=== PATIENT | male | born 1955 | race Caucasian/White ===

== ENCOUNTER 2016-09-19 16:59 | Emergency (ER) | payer OTHER ==
[2016-09-19 17:17] LABS: BASOPHIL# 0.2 X 10^3uL (0.0-0.1); BASOPHILS 1.5 % (0.0-2.0); EOSINOPHILS 1.7 % (0.0-6.0); EOSINOPHILS# 0.2 X 10^3uL (0.0-0.4); HEMATOCRIT 49.9 % (42.0-54.0); HEMOGLOBIN 17.2 g/dL (14.0-18.0); LYMPHOCYTES 14.9 % (20.0-40.0); LYMPHOCYTES# 2.1 X 10^3uL (0.8-3.8); MEAN CELL VOLUME 95.8 fL (80.0-100.0); MEAN CORPUS. HGB CONCENTRATION 34.6 g/dL (32.0-36.0); MEAN CORPUSCULAR HEMOGLOBIN 33.1 pg (29.0-35.0); MEAN PLATELET VOLUME 8.8 fL (7.4-10.4); MONOCYTES 5.3 % (2.0-10.0); MONOCYTES# 0.7 X 10^3uL (0.2-1.0); NEUTROPHILS 76.6 % (54.0-75.0); NEUTROPHILS# 10.8 X 10^3uL (2.6-6.7); PLATELET COUNT 216 X 10^3uL (130-440); RED BLOOD COUNT 5.21 X 10^6uL (4.20-6.10); RED CELL DISTRIBUTION WIDTH 14.7 % (11.5-14.5)
[2016-09-19 17:29] LABS: BLOOD UREA NITROGEN 8 mg/dL (9-20); CALCIUM 9.5 mg/dL (8.4-10.2); CHLORIDE 105 mmol/L (98-107); CREATININE 0.8 mg/dL (0.7-1.3); EST GLOMERULAR FILTRATION RATE > 60 mL/min; GLUCOSE 104 mg/dL (70-100); MAGNESIUM 1.8 mg/dL (1.6-2.3); POTASSIUM 3.9 mmol/L (3.5-5.1); SODIUM 140 mmol/L (137-145)
[2016-09-19 17:40] LABS: TROPONIN I < 0.012 ng/mL (0.00-0.034)
--- NOTE | 2016-09-19 17:48 | RADIOLOGY REPORT ---
HISTORY: Shortness of breath and vomiting. COMPARISON: None. FINDINGS: 1 view of the chest obtained. Hyperinflated lungs are noted, consistent with COPD, there is no focal consolidation. There is no pleural effusion. There is no pneumothorax. The cardiomediastinal silh ouette is normal. There is no abnormality of the pulmonary vessels. There is no focal lung parenchy mal nodule. There is no bone lesion. IMPRESSION: COPD, no acute abnormality. Final Electronic Signature: This report was electronically signed by Nikolas Tim MD, FACR on 2016 5:46 PM. sarah /
--- NOTE | 2016-09-19 18:30 | ER NURSING DOCUMENTATION ---
Nurse's Notes [facility] Name:Arnaldo Vaughan Age:61 yrs Sex:Male :1955 Arrival Date:09/19/2016 Time:16:59 BedTrauma-A Private MD:Physician, No Diagnosis:Vomiting;Bronchitis Acute;Bronchitis Asthmatic Presentation: 09/19 17:03 Acuity: ANGELICA 2 tg 17:07 Presenting complaint: Patient states: emesis x3 prior to arrival; patient has had 5 MIs nf and each has started with vomiting, denies chest pain or other symptoms. Transition of care: patient was not received from another setting of care. Notified ED Physician of patient's arrival and CC Dr. Hallman notified. 17:07 Method Of Arrival: Walk In nf 17:07 Care prior to arrival: None. nf Triage Assessment: 17:07 General: Appears in no apparent distress, well nourished, well groomed, Behavior is nf anxious, pleasant. Pain: Denies pain. Neuro: No deficits noted. Cardiovascular: Capillary refill < 3 seconds Heart tones present Denies fatigue, lightheadedness, palpitations, Rhythm is sinus rhythm. Respiratory: No deficits noted. Respiratory effort is even, unlabored, Respiratory pattern is regular, Breath sounds are clear bilaterally. GI: Reports vomiting, Denies diarrhea, nausea, tolerance of food, tolerance of fluids. : Denies urinary frequency, urgency. Musculoskeletal: No deficits noted. Historical: - Allergies: No known drug Allergies; - Home Meds: 1. Omeprazole Oral 2. aspirin 81 mg oral tab once daily 3. bisoprolol fumarate oral 4. Isosorbide Mononitrate Oral 5. Synthroid Oral 6. sertraline oral 7. Nitrostat SL - PMHx: AAA; GERD; THYROID PROBLEM; Kidney Stone w/ Colic (April 12, 2016); [place]; cardiac stent; - PSHx: CHOLECYSECTOMY; CABG; - Tetanus: Other NA today. - Ebola Screening: : No symptoms or risks identified at this time. . - Immunization history: Pneumococcal vaccine is not up to date, Flu Vaccine None. - Social history: Smoking status: Patient uses tobacco products, current every day smoker. Patient/guardian denies using alcohol, street drugs. Screenin:07 Infectious Disease Risk None. Abuse screen: Denies threats or abuse. Nutritional nf screening: No deficits noted. Assessment: 17:32 See Triage Assessment done by same RN. Pain: Denies pain. GI: Abdomen is flat, non- nf distended. Vital Signs: 17:07 BP 127 / 91; Pulse 94; Resp 20; Temp 98.3(O); Pulse Ox 94% on R/A; Weight 61.23 kg; nf Height 5 ft. 11 in. (180.34 cm); Pain 0/10; 18:15 BP 110 / 70; Pulse 81; Resp 16; Pulse Ox 91% on R/A; Pain 0/10; nf 17:07 Body Mass Index 18.83 (61.23 kg, 180.34 cm) nf ED Course: 17:00 Patient arrived in ED. arc 17:00 Taras Hallman MD is Attending Physician. tl1 17:00 Physician, No is Private Physician. arc 17:00 EKG done. (by ED staff). Reviewed by Taras Hallman MD. nf 17:03 Keegan Victor, RN is Primary Nurse. tg 17:03 Triage completed. tg 17:07 Arm band placed on Bed in low position Gowned HOB Elevated Side rails up x1. Family nf accompanied patient. 17:07 Valuables Remains with patient Adult w/ patient. monitoring specialist on. Pulse ox on. NIBP nf On - RN Monitoring Only. Door closed. Noise minimized. Lights dimmed. Moved to private room. Verbal reassurance given. Warm blanket given. Pillow given. 17:15 Labs drawn. By patient care secretary Sent per order to lab. Inserted saline lock: 18 gauge in right em3 antecubital area and blood collected. 17:15 EKG attached nf 17:20 Port Xray Completed. hz 17:23 CHEST; SINGLE VIEW [id number] In Process Unspecified. EDMS Administered Medications: 18:18 Drug: Albuterol HFA Inhaler 2 puffs; {Note: administered now and remainder of inhaler nf dispensed to patient.} Route: Inhalation; 18:19 Follow up: Response: No adverse reaction nf 18:23 Follow up: Response: Medication administered at discharge. nf Outcome: 18:06 Discharge ordered by . tl1 18:23 Discharged to home ambulatory, with significant other. nf 18:23 Condition: stable 18:23 Discharge Assessment: Patient awake, alert and oriented x 3. No cognitive and/or functional deficits noted. Patient verbalized understanding of disposition instructions. 18:23 Discharge instructions given to patient, family, Instructed on discharge instructions, follow up and referral plans. medication usage, benefits of quitting smoking, Demonstrated understanding of instructions, medications, Prescriptions given X 3, zofran and prednisone and combivent inhaler 18:23 IV D/Ranjit nf 18:30 Patient left the ED. nf 09/20 13:31 Discharge F/U Call: Unable to reach: non-working number Signatures: Dispatcher [employer] EDKeegan Dillard RN RN Donya Anand RN RN Oneyda Zimmerman RN RN nf Rhett Romero em3 Taras Hallman MD MD tl1 Verena Pabon, [facility] Kim Arteaga
--- NOTE | 2016-09-19 18:30 | ER PHYSICIAN DOCUMENTATION ---
Physician Documentation [facility] Name:Arnaldo Vaughan Age:61 yrs Sex:Male :1955 Arrival Date:09/19/2016 Time:16:59 BedTrauma-A Private MD:Physician, No ED Taras Jones Disposition: 09/21 15:31 Chart complete. tl1 Disposition: 09/19/16 18:06 Discharged to Home/Self Care. Impression: Vomiting, Bronchitis Acute, Bronchitis Asthmatic. - Condition is Good. - Discharge Instructions: VOMITING (6y-Adult), ASTHMATIC BRONCHITIS Adult - BRONCHITIS w/ Wheezing (Adult). - Prescriptions for Zofran 4 mg Oral Tablet - take 1-2 tablet by ORAL route every 4-6 hours As needed; 10 tablet. Combivent Respimat 20- 100 mcg/actuation Inhalation aerosol - inhale 1 puff by INHALATION route 4 times per day not to exceed 6 puffs in 24hrs; 1 Inhaler. Prednisone 20 mg Oral - take 2 tablet by ORAL route once daily for 5 days; 10 tablet. - Medical Reconciliation form form. - Follow up: Private Physician; When: 4- 6 days; Reason: Recheck today's complaints, Continuance of care. - Problem is an ongoing problem. - Symptoms have improved. HPI: 09/19 17:01 This 61 yrs old Male presents to ER via Walk In with complaints of Vomiting. tl1 17:01 The patient presents to the emergency department with vomiting, without any complaints tl1 of abdominal pain. Onset: The symptom(s)/episode began/occurred suddenly, this morning. 17:10 He has MMP. He vomited frequently prior to getting his gallbladder out about a year tl1 ago. He still vomits suddenly, without warning,, several times a week for no apparent reason. He has no other GI symptom and otherwise feels well right now, after vomiting 3 times earlier today; twice this AM within a short period of time., and then once just prior to arrival.. Only other symptoms have been, for the last 2 days, have been a little bit of a [employer] cough and a minor degree off sinus congestion.. Historical: - Allergies: No known drug Allergies; - Home Meds: 1. Omeprazole Oral 2. aspirin 81 mg oral tab once daily 3. bisoprolol fumarate oral 4. Isosorbide Mononitrate Oral 5. Synthroid Oral 6. sertraline oral 7. Nitrostat SL - PMHx: AAA; GERD; THYROID PROBLEM; Kidney Stone w/ Colic (April 12, 2016); [place]; cardiac stent; - PSHx: CHOLECYSECTOMY; CABG; - Tetanus: Other NA today. - Ebola Screening: : No symptoms or risks identified at this time. . - Immunization history: Pneumococcal vaccine is not up to date, Flu Vaccine None. - Social history: Smoking status: Patient uses tobacco products, current every day smoker. Patient/guardian denies using alcohol, street drugs. ROS: 17:10 Cardiovascular: Negative for chest pain, edema, orthopnea, paroxysmal nocturnal tl1 dyspnea, acute changes. 17:10 Respiratory: Negative for dyspnea on exertion, hemoptysis, shortness of breath, sputum production, wheezing. 17:10 Abdomen/GI: Positive for vomiting, Negative for abdominal pain, nausea, diarrhea, constipation, abdominal cramps, anorexia, hematemesis, black/tarry stool. 17:10 All other systems are negative. Vital Signs: 17:07 BP 127 / 91; Pulse 94; Resp 20; Temp 98.3(O); Pulse Ox 94% on R/A; Weight 61.23 kg; nf Height 5 ft. 11 in. (180.34 cm); Pain 0/10; 18:15 BP 110 / 70; Pulse 81; Resp 16; Pulse Ox 91% on R/A; Pain 0/10; nf 17:07 Body Mass Index 18.83 (61.23 kg, 180.34 cm) nf MDM: 17:00 Patient medically screened. tl1 17:15 EKG attached nf 18:00 Differential diagnosis: gastritis, cholecystitis, pancreatitis, appendicitis, tl1 gastroenteritis, Acute coronary syndrome. Data reviewed: vital signs, nurses notes, old medical records, lab test result(s), EKG, radiologic studies, plain films, and as a result, I will discharge patient. ECG:. Medication response: The patient's symptoms have improved, albuterol nebulizer treatment(s) relieved the patient's symptoms. The patient is no longer wheezing. 09/19 17:20 Order name: CBC AUTO DIF, MDIF/RMOR IF IND; Complete Time: 18:05 EDMS 09/19 18:00 Interpretation: WHITE BLOOD COUNT 14.0; HEMOGLOBIN 17.2; HEMATOCRIT 49.9; PLATELET tl1 COUNT 216. 09/19 17:30 Order name: BASIC METABOLIC PANEL; Complete Time: 18:05 [facility] 09/19 18:03 Interpretation: SODIUM 140; POTASSIUM 3.9; CHLORIDE 105; CARBON DIOXIDE 22; GLUCOSE tl1 104; BLOOD UREA NITROGEN 8; CREATININE 0.8; CALCIUM 9.5. 09/19 17:30 Order name: MAGNESIUM; Complete Time: 18:05 [facility] 09/19 18:03 Interpretation: Normal: MAGNESIUM 1.8. tl1 09/19 17:41 Order name: TROPONIN I; Complete Time: 18:05 EDKS 09/19 17:23 Order name: CHEST; SINGLE VIEW [id number] EDKS 09/19 17:48 Order name: CHEST; SINGLE VIEW [id number]; Complete Time: 18:05 [facility] 09/19 17:10 Order name: 12-lead EKG; Complete Time: 17:11 09/19 17:10 Order name: Iv Saline Lock; Complete Time: 17:11 09/19 17:10 Order name: Place Patient On Monitor; Complete Time: 17:11 09/19 17:10 Order name: Pulse Ox Continuous; Complete Time: 17:11 nf EC:00 Rate is 8 beats/min. Rhythm is regular. QRS Steinauer is Normal. SC interval is normal. QRS tl1 interval is normal. QT interval is normal. No Q waves. T waves are Normal. No ST changes noted. Clinical impression: Normal ECG. Interpreted by me. Reviewed by me. Dispensed Medications: 18:18 Drug: Albuterol HFA Inhaler 2 puffs; {Note: administered now and remainder of inhaler nf dispensed to patient.} Route: Inhalation; 18:19 Follow up: Response: No adverse reaction nf 18:23 Follow up: Response: Medication administered at discharge. nf Signatures: Oneyda Wilks, Taras Conteh RN, MD MD tl1
[2016-09-19] MEDS ORDERED: ALBUTEROL HFA 1 INH INHALER INHALATION ONE (18:31)
== END 2016-09-19 18:30 | disposition home or self-care (01) ==
LOC: ER 16:59
DX: J45.998 Other asthma (principal); R11.10 Vomiting, unspecified; I25.2 Old myocardial infarction; Z95.5 Presence of coronary angioplasty implant and graft; Z79.82 Long term (current) use of aspirin; Z79.899 Other long term (current) drug therapy
CPT/HCPCS: 71010; 80048; 83735; 84484; 85025; 93005; 94640; 99285; J7611

== ENCOUNTER 2016-10-05 14:45 | Emergency (ER) | payer OTHER ==
--- NOTE | 2016-10-05 16:25 | ER NURSING DOCUMENTATION ---
Nurse's Notes [facility] Name:Arnaldo Vaughan Age:61 yrs Sex:Male :1955 Arrival Date:10/05/2016 Time:14:45 Bed1 Private MD:Physician, No Diagnosis:Sacroiliac Sprain;Sacroiliitis Presentation: 10/05 14:55 Presenting complaint: Patient states: L hip pain after standing wrong. Transition of lp care: Home. 14:55 Acuity: ANGELICA 3 lp 14:55 Method Of Arrival: Private Vehicle lp Triage Assessment: 14:58 General: Appears in no apparent distress, Behavior is appropriate for age. Pain: lp Complains of pain in left iliac crest Pain does not radiate. Pain currently is 1 out of 10 on a pain scale. At worst was 7 out of 10 on a pain scale. Musculoskeletal: Circulation, motion, and sensation intact Capillary refill < 3 seconds Range of motion limited in left hip. Historical: - Allergies: No known drug Allergies; - Home Meds: 1. Combivent Inhl Unknown every 6 hours 2. aspirin 81 mg oral tab 1 tab once daily 3. bisoprolol fumarate 5 mg oral tab 1 tab once daily 4. isosorbide mononitrate 30 mg oral Tb24 1 tab once daily in the morning 5. levothyroxine 50 mcg oral tab 1 tab once daily 6. sertraline 100 mg oral tab 1 tab once daily 7. Nitrostat 0.4 mg sublingual subl 1 tab at the first sign of an attack; no more than 3 tabs are recommended within a 15 minute period. - PMHx: ANGINA; heart disease; Hypertension; HYPOTHYROIDISM; DEPRESSION; AAA; Kidney Stone w/ Colic (April 12, 2016); cardiac stent; - PSHx: CHOLECYSECTOMY; CABG; - Tetanus: < 10 years. - Ebola Screening: : Patient negative for fever greater than or equal to 101.5 degrees Fahrenheit, and additional compatible Ebola Virus Disease symptoms. Patient denies exposure to infectious person. Patient denies travel to an Ebola-affected area in the 21 days before illness onset. . - Immunization history: Pneumococcal vaccine is up to date, Flu Vaccine < 1 year. - Social history: Smoking status: Patient uses tobacco products, current every day smoker. Screenin:01 Infectious Disease Risk None. Abuse screen: Denies threats or abuse. Denies injuries lp from another. Nutritional screening: No deficits noted. Vital Signs: 14:59 BP 139 / 92; Pulse 62; Resp 14; Temp 98.0(O); Pulse Ox 97% on R/A; Weight 63.5 kg; lp Height 5 ft. 8 in. (172.72 cm); Pain 1/10; 16:24 BP 120 / 83; Pulse 62; Resp 14; Pulse Ox 94% on R/A; lp 14:59 Body Mass Index 21.29 (63.50 kg, 172.72 cm) lp ED Course: 14:46 Patient arrived in ED. ds 14:46 Physician, No is Private Physician. ds 14:55 Margi Wright RN is Primary Nurse. lp 14:55 Triage completed. lp 15:[address] Hallman notified. lp 15:01 Taras Hallman MD is Attending Physician. tl1 15:01 Valuables Remains with patient Patient has correct armband on for positive lp identification. Placed in gown. Bed in low position. Call light in reach. 15:37 Patient moved to radiology. alka 15:42 Patient moved back from radiology. alka Administered Medications: No medications were administered Outcome: 16:05 Discharge ordered by . tl1 16:23 Discharged to home ambulatory. lp 16:23 Condition: good 16:23 Instructed on discharge instructions, follow up and referral plans. medication usage. 16:24 Patient left the ED. lp Signatures: Margi Wright RN RN lp Srot, Angeli, Reg Reg Dee Dee Levy Tom, MD MD tl1
--- NOTE | 2016-10-06 05:42 | RADIOLOGY REPORT ---
Two views of the left hip demonstrate no displaced fracture, dislocation or bony destructive change. The hip joint appears unremarkable. Incidentally noted are postoperative changes involving the lower lumbar spine. IMPRESSION: No displaced injury is identified. Occult pelvic fractures are common and may require further evaluation and/or followup for detection. MTDD
--- NOTE | 2016-10-07 16:24 | ER PHYSICIAN DOCUMENTATION ---
Physician Documentation [facility] Name:Arnaldo Vaughan Age:61 yrs Sex:Male :1955 Arrival Date:10/05/2016 Time:14:45 Bed1 Private MD:Physician, No ED Taras Jones Disposition: 10/06 03:06 Chart complete. tl1 Disposition: 10/05/16 16:05 Discharged to Home/Self Care. Impression: Sacroiliac Sprain, Sacroiliitis. - Condition is Good. - Prescriptions for Declo 7.5- 325 mg Oral - take 1 tablet by ORAL route every 6 hours As needed; 12 tablet. - Medical Reconciliation form form. - Follow up: Private Physician; When: 4- 6 days; Reason: Recheck today's complaints, Continuance of care. - Problem is new. - Symptoms have improved. HPI: 10/05 15:00 This 61 yrs old Male presents to ER via Private Vehicle with complaints of tl1 Hip Pain - left. 15:00 The patient or guardian reports pain, Pain in the area of his left SI joint.. that tl1 occurred at home, sustained from twisting on his bad left knee while he was standing up. The patient is able to ambulate with assistance. The patient is able to bear partial body weight. There is no radiation of the patient's discomfort. Onset: The symptom(s)/episode began/occurred suddenly, just prior to arrival. Historical: - Allergies: No known drug Allergies; - Home Meds: 1. Combivent Inhl Unknown every 6 hours 2. aspirin 81 mg oral tab 1 tab once daily 3. bisoprolol fumarate 5 mg oral tab 1 tab once daily 4. isosorbide mononitrate 30 mg oral Tb24 1 tab once daily in the morning 5. levothyroxine 50 mcg oral tab 1 tab once daily 6. sertraline 100 mg oral tab 1 tab once daily 7. Nitrostat 0.4 mg sublingual subl 1 tab at the first sign of an attack; no more than 3 tabs are recommended within a 15 minute period. - PMHx: ANGINA; heart disease; Hypertension; HYPOTHYROIDISM; DEPRESSION; AAA; Kidney Stone w/ Colic (April 12, 2016); cardiac stent; - PSHx: CHOLECYSECTOMY; CABG; - Tetanus: < 10 years. - Ebola Screening: : Patient negative for fever greater than or equal to 101.5 degrees Fahrenheit, and additional compatible Ebola Virus Disease symptoms. Patient denies exposure to infectious person. Patient denies travel to an Ebola-affected area in the 21 days before illness onset. . - Immunization history: Pneumococcal vaccine is up to date, Flu Vaccine < 1 year. - Social history: Smoking status: Patient uses tobacco products, current every day smoker. ROS: 15:00 MS/extremity: Positive for pain, of the left SI joint.. tl1 Exam: 15:00 Constitutional: This is a well developed, well nourished patient who is awake, alert, tl1 and in no acute distress. 15:00 Head/Face: Normocephalic, atraumatic. tl1 15:00 Cardiovascular: Rate: normal. 15:00 Respiratory: Respirations: normal. 15:00 Musculoskeletal/extremity: Extremities: grossly normal except: noted in the left SI joint: pain, tenderness. 15:00 Skin: Exam negative for acute changes. Vital Signs: 14:59 BP 139 / 92; Pulse 62; Resp 14; Temp 98.0(O); Pulse Ox 97% on R/A; Weight 63.5 kg; lp Height 5 ft. 8 in. (172.72 cm); Pain 1/10; 16:24 BP 120 / 83; Pulse 62; Resp 14; Pulse Ox 94% on R/A; lp 14:59 Body Mass Index 21.29 (63.50 kg, 172.72 cm) lp MDM: 15:01 Patient medically screened. tl1 15:45 Differential diagnosis: arthritis, strain. Data reviewed: vital signs, nurses notes, tl1 radiologic studies, plain films, and as a result, I will discharge patient. Test interpretation: by ED physician or midlevel provider: plain radiologic studies. Counseling: I had a detailed discussion with the patient and/or guardian regarding: the historical points, exam findings, and any diagnostic results supporting the discharge/admit diagnosis, radiology results, the need for outpatient follow up. Response to treatment: the patient's symptoms have mildly improved after treatment. Special discussion: I recommended a few days of rest. If he fails to improve rapidly, he may benefit from physical therapy.. 10/06 06:59 Order name: HIP;W/PEL 2-[address] [place] [id number] EDMS Dispensed Medications: No medications were administered Signatures: Margi Wright, MAHSA RN Taras Padilla MD MD tl1
== END 2016-10-05 16:25 | disposition home or self-care (01) ==
LOC: ER 14:45
DX: S33.6XXA Sprain of sacroiliac joint, initial encounter (principal); M46.1 Sacroiliitis, not elsewhere classified; X50.0XXA Overexertion from strenuous movement or load, initial encounter; Y92.019 Unspecified place in single-family (private) house as the place of occurrence of the external cause; I51.9 Heart disease, unspecified; Z95.1 Presence of aortocoronary bypass graft; Z79.82 Long term (current) use of aspirin; Z79.899 Other long term (current) drug therapy
CPT/HCPCS: 99283